=== PATIENT | female | born 1965 | race Caucasian/White ===

== ENCOUNTER 2022-05-14 10:17 | Emergency (ER) | payer OTHER ==
[~2022-05-14] VITALS: Ht 175.3 cm; Wt 72.6 kg
--- NOTE | 2022-05-14 10:30 | NUR ---
C/O TOOTH PAIN, FACIAL SWELLING, ON ANTIBIOTICS X 4 DAYS FOR TOOTH INFECTIONSENT BY DENTIST FOR FURTHER EVAL
--- NOTE | 2022-05-14 10:30 | NUR ---
Griselda solis in ED - 05/14/22 at 1112 by SARAH C/O TOOTH PAIN, FACIAL SWELLING, ON ANTIBIOTICS X 4 DAYS FOR TOOTH INFECTIONSENT BY DENTIST FOR FURTHER EVAL
--- NOTE | 2022-05-14 10:35 | NUR ---
AT BEDSIDE FOR EVAL
--- NOTE | 2022-05-14 10:37 | NUR ---
ESTABLISHED IV LINE RIGHT AC 18G , BLOOD SAMPLE OBTAINED SENT TO LAB.
[2022-05-14] MEDS ORDERED: PIPERACILLIN /TAZOBACTAM 3.375 G in IV D5W 50 ML IV ONE (11:00)
[2022-05-14 11:24] LABS: BASOPHILS # (AUTO) 0.1 K/uL (0.0-0.2); BASOPHILS % (AUTO) 0.6 % (0.0-2.0); EOSINOPHILS % (AUTO) 0.5 % (0.0-6.0); HEMATOCRIT 38 % (33-45); HEMOGLOBIN 12.5 g/dL (11.5-14.8); LYMPHOCYTES # (AUTO) 1.3 K/uL (0.8-4.8); LYMPHOCYTES % (AUTO) 11.1 % (20.0-44.0); MEAN CORPUSCULAR HGB CONC 33 g/dl (31.0-36.0); MEAN CORPUSCULAR VOLUME 90 fL (82-100); MONOCYTES # (AUTO) 0.9 K/uL (0.1-1.30); MONOCYTES % (AUTO) 7.7 % (2.0-12.0); NEUTROPHILS # (AUTO) 9.6 K/uL (1.8-8.9); NEUTROPHILS % (AUTO) 80.1 % (43.0-81.0); PLATELET COUNT (AUTO) 400 K/uL (150-450); RED BLOOD CELL COUNT(AUTO) 4.24 MIL/uL (4.0-5.2)
[2022-05-14 11:43] LABS: ALBUMIN 3.4 g/dL (3.4-5.0); BILIRUBIN,DIRECT 0.2 mg/dL (0.0-0.2); BILIRUBIN,TOTAL 0.8 mg/dL (0.2-1.0); CALCIUM, SERUM 9.2 mg/dL (8.5-10.1); CREATININE 0.8 mg/dL (0.6-1.3); TOTAL PROTEIN, SERUM 8.5 g/dL (6.4-8.2)
[2022-05-14] MEDS ORDERED: IV NS 0.9% 250 ML IV ONE (11:59)
[2022-05-14] MEDS ORDERED: IOHEXOL-300 100 ML VIAL IV ONE (11:59)
[2022-05-14] MEDS ORDERED: CT SWABBABLE VALVE TRANS SET 1 EA INFUS.SET MC ONE (11:59)
--- NOTE | 2022-05-14 12:13 | NUR ---
pt taken to ct
--- NOTE | 2022-05-14 12:21 | NUR ---
back from ct
--- NOTE | 2022-05-14 13:11 | NUR ---
md explains all the results to the patient and mother , give suggestions but keeps interrupting him.
[2022-05-14 13:12] VITALS: BP 113/69
--- NOTE | 2022-05-14 13:12 | NUR ---
Patient discharged to home in stable condition. Written and verbal after care instructions given. Patient verbalizes understanding of instruction.
--- NOTE | 2022-05-14 13:12 | NUR ---
IV removed. Catheter intact and site benign. Pressure and 4x4 applied to site. No bleeding noted.
--- NOTE | 2022-05-16 15:17 | NUR ---
blood culture positive 1 bottle gram positive cocci in clusters.
== END 2022-05-14 13:13 | disposition home or self-care (01) ==
LOC: ER 10:20
DX: K04.7 Periapical abscess without sinus (principal)
CPT/HCPCS: 99285; 70491; 96365; 87040 ×3; 70487; 84145; 85025; 80048; 83605; 80076; 36415; 85730; J2543; J7060; J7050; Q9967